=== PATIENT | female | born 1950 | race African-American/Black ===

== ENCOUNTER 2024-08-27 06:18 | Day surgery (SDC) | payer OTHER, BC ==
[2024-08-24 15:43] VITALS: BMI 30.7
[2024-08-27] MEDS ORDERED: LIDOCAINE HCL/PF 2% SDV 5ML VIAL ONE (09:27)
[2024-08-27] MEDS ORDERED: PROPOFOL 40 ML ONE (09:27)
[2024-08-27] MEDS ORDERED: MIDAZOLAM HCL 2 MG/2 ML SINGLE DOSE VIAL ONE (09:27)
[2024-08-27] MEDS ORDERED: ROPIVACAINE HCL 0.5% 30ML VIAL ONE (09:35)
[2024-08-27] MEDS: LIDOCAINE HCL 1%, 10 MG/ML (50 mL VIAL) INF ONE (10:33)
[2024-08-27] MEDS ORDERED: POVIDONE-IODINE OINTMENT 10% - 28.4 GM TUBE ONE (11:34)
[2024-08-27] MEDS ORDERED: PROMETHAZINE HCL 25 MG/1 ML VIAL IVPB PRN (12:07)
[2024-08-27] MEDS ORDERED: ONDANSETRON 4 MG/2 ML VIAL IVPUSH PRN (12:07)
[2024-08-27] MEDS: NIFEdipine 10 MG CAPSULE (FP) PO ONE (13:16)
[2024-08-27 16:25] VITALS: RESP 18
[2024-08-27 16:44] VITALS: BP 146/64; PULSE 68; TEMP 97.5
== END 2024-08-27 17:34 | disposition home or self-care (01) ==
LOC: JASU-SURG 06:18
PROVIDERS: ATTEND Surgery
PROC: 05WY03Z Revision of Infusion Device in Upper Vein, Open Approach (ICD-10-PCS; principal; 2024-08-27 09:30)
DX: I12.0 Hypertensive chronic kidney disease with stage 5 chronic kidney disease or end stage renal disease (principal); E11.22 Type 2 diabetes mellitus with diabetic chronic kidney disease; N18.6 End stage renal disease; Z79.4 Long term (current) use of insulin
CPT/HCPCS: 82962; 94760